=== PATIENT | female | born 1995 | race Caucasian/White ===

== ENCOUNTER 2025-07-02 12:18 | Emergency (ER) | payer OTHER, SELFPAY ==
--- NOTE | ~2025-07-02 | XR_ITS ---
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 Findings: No acute fracture or malalignment. No significant degenerative changes. Soft tissues unremarkable. Impression: No acute fracture or malalignment. Reviewed, dictated and finalized at location P. 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
[2025-07-02 12:37] VITALS: BP 142/84; PULSE 107; RESP 16; TEMP 36.4; O2SAT 99
--- NOTE | 2025-07-02 13:03 | ED.GENADULT ---
HPI - General Adult General Chief complaint: Extremity Injury, Lower Stated complaint: L Foot Pain Time Seen by Provider: 07/02/25 13:03 Source: patient Mode of arrival: ambulatory Limitations: no limitations History of Present Illness HPI narrative: 29-year-old female patient presents to [facility] with complaints of left foot pain since Thursday. Patient states that at times she does walk around her house barefoot. Patient denies any specific injury that she is aware of since Thursday but states she has had some redness, swelling and pain to the 3rd 4th and 5th toes. Related Data Home Medications ?Medication ?Instructions ?Recorded ?Confirmed ?Last Taken ?Type guanfacine 2 mg tablet,extended mg PO 07/02/25 Unknown History release 24 hr guanfacine 3 mg tablet,extended mg PO 07/02/25 Unknown History release 24 hr insulin lispro 100 unit/mL subcut 07/02/25 Unknown History subcutaneous pen (Humalog KwikPen (U-100) Insulin) lamotrigine 100 mg tablet mg 07/02/25 Unknown History metoprolol succinate 25 mg mg PO 07/02/25 Unknown History tablet,extended release 24 hr metoprolol tartrate 25 mg tablet mg 07/02/25 Unknown History midodrine 2.5 mg tablet mg 07/02/25 Unknown History Allergies Allergy/AdvReac Type Severity Reaction Status Date / Time No Known Allergies Allergy Verified 07/02/25 14:20 Review of Systems Review of Systems: CONSTITUTIONAL: Denies fever, chills, or sweats. EYES: Denies visual changes, redness, or discharge. ENT: Denies rhinorrhea, congestion, sore throat, or otalgia. CARDIOVASCULAR: Denies chest pain, palpitations, or edema. RESPIRATORY: Denies cough or dyspnea. GASTROINTESTINAL: Denies abdominal pain, nausea, vomiting, or diarrhea. GENITOURINARY: Denies dysuria or hematuria. SKIN: Denies rash or itching. MUSCULOSKELETAL: Denies back pain, joint pain, or myalgia. Positive left foot pain times 5 days NEUROLOGIC: Denies headache, numbness, or weakness. PSYCHIATRIC: Denies anxiety or depression. PMFSH Comments At the time of my signature I agree with nursing past medical history, surgical, social, and family history. There is no relevant family history pertinent to the presenting complaint. Exam Narrative: GENERAL: Well-appearing, well-nourished, and in no acute distress. HEAD: Normocephalic, atraumatic. EYES: PERRLA and EOMI. ENT: Nares clear, no rhinorrhea or epistaxis. Mucous membranes moist. NECK: Supple. No lymphadenopathy CHEST: Clear to auscultation. No respiratory distress. HEART: Regular rate and rhythm. No murmur heard. Normal peripheral pulses. ABDOMEN: Soft, nontender, nondistended, normal active bowel sounds. EXTREMITIES: Patient able to bear weight and ambulate with pain. No surface trauma. no ecchymosis, there is erythema noted on the top of the left foot over the 3rd 4th and 5th toes there is swelling noted to the 3rd 4th and 5th toes, No warmth present, no lesions, ulcers or break in skin integrity. there is a corn present to the lateral side of the 5th toe. The L foot is without obvious asymmetry or deformity when compared to the R foot. No bony step-off, nontender to palpation over the toes, midfoot or hindfoot or sole. Normal plantar/dorsiflexion, inversion/eversion. Distal motor and neurovascular status are intact SKIN: Warm, dry, no rash. NEURO: No focal deficits. Alert and oriented x3. Course Course Level of Care: Express Care Visit Reevaluation(s) Reevaluation #1: Re-evaluated patient notified her that the x-ray is normal. Discussed with her we will go ahead and put her on some antibiotics to see if this clears up for possible cellulitis infection. Discussed with patient if the symptoms worsen or they do not clear with the antibiotic she will need follow-up with her primary doctor. Date: 07/02/25 Time: 14:21 Vital Signs Vital signs: Vital Signs Temperature 36.4 C 07/02/25 12:37 Pulse Rate 107 H 07/02/25 12:37 Respiratory Rate 16 07/02/25 12:37 Blood Pressure 142/84 H 07/02/25 12:37 Pulse Oximetry 99 07/02/25 12:37 Temperature 36.4 C 07/02/25 12:37 Pulse Rate 107 H 07/02/25 12:37 Respiratory Rate 16 07/02/25 12:37 Blood Pressure 142/84 H 07/02/25 12:37 Pulse Oximetry 99 07/02/25 12:37 Vital signs reviewed. The patient has been informed that they may have pre-hypertension or Hypertension based on a BP reading in the department. I recommend that the patient call the primary care provider listed on their discharge instructions or a physician of their choice this week to arrange follow up for further evaluation of possible pre-hypertension or Hypertension MDM MDM Narrative Medical decision making narrative: Plan care patient's x-ray left foot to assess for any acute fractures. If this is negative may consider possibly treating for a cellulitis infection even though it is not warm the fact that she has pain and does walk around her house barefoot it could put her at risk for cellulitis infection. Differential Diagnosis Differential Diagnosis: Differential diagnosis: Dental caries, periodontal disease, avulsed tooth, tooth infections, mandibular infection, Richar's angiana, upper tooth infection, dry socket, gingivitis, acute necrotizing ulcerative gingivitis, sialolithiasis. Imaging Data Radiologist's impression: ITS Impressions Foot X-Ray 07/02/25 14:08 Impression: No acute fracture or malalignment. Critical Care Time Critical Care Time Critical Care Time: No Discharge Plan Discharge Clinical Impression: Cellulitis of foot Patient Disposition: Home Condition: Stable Instructions: Antibiotic Form, Cellulitis (ED) Additional Instructions: Take the prescribed antibiotic medicine you are given as directed until it is gone. Take it even if you feel better. It treats the infection and stops it from returning. Not taking all the medicine can make future infections hard to treat. Keep the infected area clean. When possible, raise the infected area above the level of your heart. This helps keep swelling down. May take Tylenol ibuprofen as needed for pain Take your temperature once a day for a week to monitor for fevers. If you do spike a fever please call your doctor right away. Wash your hands often to prevent spreading the infection. In the future, wash your hands before and after you touch cuts, scratches, or bandages. This will help prevent infection. Please call your doctor today and be scheduled for follow-up appointments in regards to being evaluated for vascular disease. When to call your healthcare provider Call your healthcare provider immediately if you have any of the following: Difficulty or pain when moving the joints above or below the infected area Discharge or pus draining from the area Fever of 100.4?F (38?C) or higher, or as directed by your healthcare provider Pain that gets worse in or around the infected Redness that gets worse in or around the infected area, particularly if the area of redness expands to a wider area Shaking chills Swelling of the infected area Vomiting Patient Language: Thai Prescriptions: New cephalexin 500 mg capsule 500 mg PO Q12H 7 Days Qty: 14 0RF No Action midodrine 2.5 mg tablet metoprolol succinate 25 mg tablet extended release 24 hr PO lamotrigine 100 mg tablet insulin lispro [Humalog KwikPen Insulin] 100 unit/mL insulin pen SUBCUT metoprolol tartrate 25 mg tablet guanfacine 2 mg tablet extended release 24 hr PO guanfacine 3 mg tablet extended release 24 hr PO Follow-up/Referrals: PHYSICIAN,MICRO PALEONTOLOGIST [Primary Care Provider, Internal Medicine] Time of Disposition: 14:21
== END 2025-07-02 14:23 | disposition home or self-care (01) ==
PROVIDERS: Emergency Provider Nurse Practitioner Family
DX: L03.032 Cellulitis of left toe (principal)
CPT/HCPCS: 73630; 99213; G0463